=== PATIENT | female | born 1950 | race Caucasian/White ===

== ENCOUNTER → 2019-04-28 10:03 | Outpatient (CLI) | payer MEDICARE, OTHER, SELFPAY ==
[2019-04-28 10:59] LABS: Add Manual Diff / Slide Review NO; Basophils Absolute Auto 0 /uL (0-100); Basophils Percent Auto 0.5 % (0-2); Eosinophils Absolute Auto 300 /uL (0-450); Hematocrit 40.6 % (36-46); Hemoglobin 13.6 g/dL (12.0-16.0); Lymphocytes Absolute Auto 2300 /uL (1100-4500); Lymphocytes Percent Auto 35.1 % (25-40); Mean Corpuscular HGB Conc 33.5 % (30-36); Mean Corpuscular Hemoglobin 32.4 PG (26-34); Mean Corpuscular Volume 96.8 fL (80-100); Monocytes Absolute Auto 400 /uL (0-900); Monocytes Percent Auto 6.5 % (3-14); Neutrophils Absolute Auto 3600 /uL (1500-7000); Neutrophils Percent Auto 53.9 % (50-75); Platelet Count 236 X10^3/uL (150-400); Red Blood Cell Count 4.19 X10^6/uL (4.0-5.2); Red Cell Distribution Width 13.8 % (11.6-14.8); White Blood Cell Count 6.6 X10^3/uL (4.5-11.0)
[2019-04-28 11:07] LABS: Alanine Aminotransferase 24 IU/L (9-52); Albumin 4.5 g/dL (3.5-5.0); Albumin Globulin Ratio 1.7 (1.0-2.8); Alkaline Phosphatase 55 U/L (38-126); Aspartate Aminotransferase 31 IU/L (14-36); Bilirubin Total 0.8 mg/dL (0.2-1.3); Blood Urea Nitrogen 20 mg/dL (7-17); Calcium 9.3 mg/dL (8.4-10.2); Carbon Dioxide 28 mmol/L (22-32); Chloride 101 mmol/L (98-107); Cholesterol 186 mg/dL (140-199); Estimated Glomerular Filt Rate > 60.0 mL/min (>60); Globulin 2.6 g/dL (1.7-4.1); Glucose 96 mg/dL (80-110); HDL Cholesterol 65 mg/dL (40-60); HEMOLYSIS 28 (0-50); LDL Cholesterol Calculated 90 mg/dL (<100); Sodium 138 mmol/L (137-145); Total Protein 7.1 g/dL (6.3-8.2); Triglycerides 157 mg/dL (35-150)
[2019-04-28 11:14] LABS: Potassium 5.7 mmol/L (3.4-5.1)
== END ==
PROVIDERS: PCP Family Medicine; Visit Provider Family Medicine
DX: E78.5 Hyperlipidemia, unspecified (principal)
CPT/HCPCS: 36415; 80053; 80061; 85025

== ENCOUNTER → 2019-05-15 14:35 | Outpatient (CLI) | payer MEDICARE, OTHER, SELFPAY ==
--- NOTE | 2019-05-15 14:37 | DI.RAD.S_ITS ---
PROCEDURE: XR CHEST 2V INDICATIONS: Dyspnea TECHNIQUE: 2 views of the chest were acquired. COMPARISON: [facility], , CHEST 2 VIEW, 04/12/2014, 11:47. FINDINGS: Surgical changes and devices: None. Lungs and pleura: Lungs are clear. No pleural effusions or pneumothorax. Mediastinum: Mediastinal contours are normal. Heart size is normal. Bones and chest wall: No suspicious bony abnormalities. Soft tissues appear unremarkable. IMPRESSION: No acute disease Dictated by: Adams Jauregui M.D. on 05/15/2019 at 14:58 Approved by: Adams Jauregui M.D. on 05/15/2019 at 15:00
== END ==
PROVIDERS: PCP Family Medicine; Visit Provider Family Medicine
DX: R06.00 Dyspnea, unspecified (principal)
CPT/HCPCS: 71046

== ENCOUNTER → 2019-07-29 14:29 | Outpatient (CLI) | payer MEDICARE, OTHER, SELFPAY ==
--- NOTE | 2019-07-29 14:37 | DI.RAD.S_ITS ---
PROCEDURE: XR CHEST 2V INDICATIONS: cough, sob TECHNIQUE: 2 views of the chest were acquired. COMPARISON: [facility], CR, XR CHEST 2V, 05/15/2019, 14:37. FINDINGS: Surgical changes and devices: None. Lungs and pleura: Lungs are clear. No pleural effusions or pneumothorax. Mediastinum: Mediastinal contours are normal. Heart size is normal. Bones and chest wall: No suspicious bony abnormalities. Soft tissues appear unremarkable. IMPRESSION: No acute cardiopulmonary abnormality. Dictated by: Edy Mccray M.D. on 07/29/2019 at 15:18 Approved by: Edy Mccray M.D. on 07/29/2019 at 15:19
[2019-07-29 15:10] LABS: Add Manual Diff / Slide Review NO; Basophils Absolute Auto 0 /uL (0-100); Basophils Percent Auto 0.4 % (0-2); Eosinophils Absolute Auto 300 /uL (0-450); Eosinophils Percent Auto 2.6 % (2-4); Hematocrit 40.6 % (36-46); Hemoglobin 13.7 g/dL (12.0-16.0); Lymphocytes Absolute Auto 4300 /uL (1100-4500); Lymphocytes Percent Auto 42.7 % (25-40); Mean Corpuscular HGB Conc 33.7 % (30-36); Mean Corpuscular Hemoglobin 32.3 PG (26-34); Mean Corpuscular Volume 95.8 fL (80-100); Monocytes Absolute Auto 700 /uL (0-900); Monocytes Percent Auto 6.9 % (3-14); Neutrophils Absolute Auto 4800 /uL (1500-7000); Neutrophils Percent Auto 47.4 % (50-75); Platelet Count 239 X10^3/uL (150-400); Red Blood Cell Count 4.24 X10^6/uL (4.0-5.2); Red Cell Distribution Width 13.4 % (11.6-14.8); White Blood Cell Count 10.1 X10^3/uL (4.5-11.0)
== END ==
PROVIDERS: PCP Family Medicine; Visit Provider Nurse Practitioner Family
DX: R05 Cough (principal); R06.02 Shortness of breath
CPT/HCPCS: 36415; 71046; 85025

== ENCOUNTER → 2019-10-13 12:03 | Outpatient (CLI) | payer MEDICARE, OTHER, SELFPAY ==
--- NOTE | 2019-10-13 12:05 | DI.RAD.S_ITS ---
PROCEDURE: XR ANKLE RT MIN 3V INDICATIONS: Ankle pain TECHNIQUE: 3 views of the ankle were acquired. COMPARISON: [facility], CR, ANKLE MIN 3VW (RT), 01/25/2015, 16:02. FINDINGS: Bones: No acute fractures or dislocations. Old distal tibial diaphyseal fracture with deformity. Irregularity of the distal tibiofibular syndesmosis, likely sequelae of old injury. There is severe tibiotalar joint degeneration. Ankle mortise is normally aligned. No suspicious bony lesions. Calcaneal spurring. Soft tissues: No tibiotalar joint effusion. Achilles tendon appears normal. IMPRESSION: 1. No acute fractures. 2. Old distal tibial metaphyseal fracture with deformity. 3. Irregularity of the distal tibiofibular syndesmosis, likely sequelae of remote injury. 4. Severe tibiotalar joint degeneration. 5. Calcaneal spurring. Dictated by: Cyndi Person M.D. on 10/13/2019 at 13:29 Approved by: Cyndi Person M.D. on 10/13/2019 at 13:37
== END ==
PROVIDERS: PCP Family Medicine; Visit Provider Family Medicine
DX: M25.571 Pain in right ankle and joints of right foot (principal); M19.071 Primary osteoarthritis, right ankle and foot; M77.31 Calcaneal spur, right foot
CPT/HCPCS: 73610

== ENCOUNTER → 2019-10-20 15:36 | Outpatient (CLI) | payer MEDICARE, OTHER, SELFPAY ==
--- NOTE | 2019-10-20 15:38 | DI.MRI.S_ITS ---
PROCEDURE: MR ANKLE RT WO CON INDICATIONS: Right ankle pain TECHNIQUE: Noncontrast sagittal T1 spin echo and T2 fast spin echo with fat saturation, axial proton density fast spin echo and T2 fast spin echo with fat saturation, coronal T1 spin echo and T2 fast spin echo with fat saturation through the ankle/hindfoot. COMPARISON: None. FINDINGS: Image quality: Excellent. Bones and joints: No definite acute marrow contusion or fracture. No evidence of hindfoot coalition. No osteochondral injuries of the talar dome however there is no full-thickness tibiotalar cartilage loss with subchondral edema and cystic change. Subtalar joint injection also noted. Medial structures: The posterior tibialis, flexor digitorum longus, and flexor hallucis longus tendons are intact. The posterior tibial neurovascular bundle appears normal within the tarsal tunnel, without extrinsic mass effect. The deep layer (anterior and posterior tibiotalar ligaments) and superficial layer (tibionavicular, tibiospring, and tibiocalcaneal ligaments) of the deltoid ligament appear normal. The spring ligament components (superomedial calcaneonavicular, medioplantar oblique calcaneonavicular, and inferoplantar longitudinal ligaments) are intact. Lateral structures: The anterior talofibular demonstrates markedly thinned appearance although minimal intact fibers present. The calcaneofibular ligament is not well-visualized and probably ruptured although this could be chronic Posterior talofibular ligament appears intact. More superiorly, the anterior and posterior tibiofibular ligaments appear intact, however the Intermalleol ligament not well visualized and there is chronic appearing degenerative change, with sclerosis although some reactive marrow edema. The tibiofibular syndesmosis is normal in width at 2 mm or less. The peroneus longus and brevis tendons demonstrate normal location and morphology. Mild peroneus longus tenosynovitis Adjacent bony peroneal tubercle and retrotrochlear prominence are normal in size. The sinus tarsi demonstrates normal fatty signal, without edema, fibrosis, or cyst formation. Visualized sinus tarsi components (cervical ligament, interosseous talocalcaneal ligament, roots of the inferior extensor retinaculum) appear normal. The calcaneonavicular and calcaneocuboid components of the bifurcate ligament appear intact. The dorsal calcaneocuboid ligament appears intact. Anterior structures: The tibialis anterior, extensor hallucis longus, and extensor digitorum longus tendons appear intact. The dorsal talonavicular ligament appears intact. Posterior and plantar structures: Achilles tendon is intact. Medial band plantar fasciitis. No abductor digiti quinti muscle atrophy to suggest Hdez neuropathy. IMPRESSION: Severe tibiotalar and subtalar joint degeneration, with subchondral marrow edema and cystic changes. No definite osseous coalition seen, although differential does include nonosseous coalition (although statistically much less likely) Chronic appearing irregularity of the intermalleolar ligament, and adjacent sclerosis and mild marrow edema in keeping with ligamentous injury although appears chronic and no definite widening of the distal tibiofibular syndesmosis Chronic appearing sprain of the anterior talofibular ligament. The calcaneofibular ligament appears ruptured and not well-visualized Mild peroneus longus tenosynovitis Mild medial band plantar fasciitis. Dictated by: Adams Jauregui M.D. on 10/21/2019 at 9:14 Approved by: Adams Jauregui M.D. on 10/21/2019 at 9:29
== END ==
PROVIDERS: Family Provider Orthopaedic Surgery Foot and Ankle Surgery; PCP Family Medicine; Visit Provider Family Medicine
DX: M25.571 Pain in right ankle and joints of right foot (principal); M19.071 Primary osteoarthritis, right ankle and foot; M65.871 Other synovitis and tenosynovitis, right ankle and foot; M72.2 Plantar fascial fibromatosis
CPT/HCPCS: 73721

== ENCOUNTER → 2020-02-01 15:11 | Outpatient (CLI) | payer MEDICARE, OTHER, SELFPAY ==
--- NOTE | 2020-02-01 15:14 | DI.RAD.S_ITS ---
PROCEDURE: XR CHEST 2V INDICATIONS: Fatigue TECHNIQUE: 2 views of the chest were acquired. COMPARISON: [facility], CR, XR CHEST 2V, 07/29/2019, 14:41. FINDINGS: Surgical changes and devices: None. Lungs and pleura: Lungs are clear. No pleural effusions or pneumothorax. Mediastinum: Mediastinal contours are normal. Heart size is normal. Bones and chest wall: No suspicious bony abnormalities. Soft tissues appear unremarkable. IMPRESSION: No acute disease or interval change Dictated by: Adams Jauregui M.D. on 02/01/2020 at 16:31 Approved by: Adams Jauregui M.D. on 02/01/2020 at 16:33
[2020-02-01 17:09] LABS: Add Manual Diff / Slide Review NO; Basophils Absolute Auto 0 /uL (0-100); Basophils Percent Auto 0.3 % (0-2); Eosinophils Absolute Auto 200 /uL (0-450); Eosinophils Percent Auto 2.9 % (2-4); Hematocrit 40.1 % (36-46); Hemoglobin 13.8 g/dL (12.0-16.0); Lymphocytes Absolute Auto 2600 /uL (1100-4500); Lymphocytes Percent Auto 33.6 % (25-40); Mean Corpuscular HGB Conc 34.4 % (30-36); Monocytes Absolute Auto 600 /uL (0-900); Monocytes Percent Auto 7.3 % (3-14); Neutrophils Absolute Auto 4300 /uL (1500-7000); Neutrophils Percent Auto 55.9 % (50-75); Platelet Count 230 X10^3/uL (150-400); Red Blood Cell Count 4.18 X10^6/uL (4.0-5.2); Red Cell Distribution Width 13.2 % (11.6-14.8); White Blood Cell Count 7.7 X10^3/uL (4.5-11.0)
[2020-02-01 17:39] LABS: Alanine Aminotransferase 35 IU/L (<35); Albumin 4.6 g/dL (3.5-5.0); Albumin Globulin Ratio 1.6 (1.0-2.8); Alkaline Phosphatase 63 U/L (38-126); Aspartate Aminotransferase 34 IU/L (14-36); BUN Creatinine Ratio 23.1 (6-22); Bilirubin Total 0.5 mg/dL (0.2-1.3); Blood Urea Nitrogen 21 mg/dL (7-17); Calcium 10.6 mg/dL (8.4-10.2); Carbon Dioxide 25 mmol/L (22-32); Chloride 103 mmol/L (98-107); Estimated Glomerular Filt Rate > 60.0 mL/min (>60); Globulin 2.9 g/dL (1.7-4.1); Glucose 93 mg/dL (80-110); HEMOLYSIS < 15 (0-50); Potassium 4.4 mmol/L (3.4-5.1); Sodium 138 mmol/L (137-145); Total Protein 7.5 g/dL (6.3-8.2)
[2020-02-01 18:09] LABS: Thyroid Stimulating Hormone 2.36 uIU/mL (0.47-4.68)
[2020-02-03 06:51] LABS: COVID19 Sendout Not Detected (Not Detected)
== END ==
PROVIDERS: Physician Assistant; Family Provider Orthopaedic Surgery Foot and Ankle Surgery; PCP Family Medicine; Referring Provider Family Medicine; Visit Provider Family Medicine
DX: R53.83 Other fatigue (principal); R06.02 Shortness of breath
CPT/HCPCS: 36415; 71046; 80053; 84443; 85025; 87635

== ENCOUNTER 2020-08-27 08:22 | Emergency (ER) | payer MEDICARE, OTHER, SELFPAY ==
[2020-08-27 08:29] VITALS: BP 169/88; PULSE 71; RESP 18; TEMP 36.9; O2SAT 97; BMI 33.5
[2020-08-27] MEDS: PROPARACAINE 0.5% OPHTH SOL 1 DROPS EYE-BOTH (08:40)
[2020-08-27] MEDS: FLUORESCEIN 1 MG STRIP EYE-BOTH (08:40)
--- NOTE | 2020-08-27 08:44 | ED.EYEPROB ---
HPI - Eye Problem General Chief complaint: Eye Problems Stated complaint: LT EYE SWOLLEN/ RED DRAINING Time Seen by Provider: 08/27/20 08:29 Source: patient Mode of arrival: Ambulatory Limitations: no limitations History of Present Illness HPI Narrative: The patient is a 70-year-old female with history of cataract presenting with right eye irritation and drainage. She said it started yesterday it felt like septic was in her eye. This morning she woke up and was all crusted over. She thought it might be allergies could she was sneezing some yesterday. She denies any fever chills no blurry or double vision. chief complaint: eye redness Onset (ago): day(s) Onset description: unknown Duration: constant Location: right eye Eye Symptoms: burning, redness, pain, foreign body sensation, discharge and photophobia Mechanism: none Related Data Home Medications Medication Instructions Recorded Confirmed CALCIUM/VITAMIN D (CALCIUM + D 1 tab PO #0 07/25/11 07/29/19 500MG/125UNITS) MULTIVITAMIN (#MULTIPLE VITAMINS) 1 cap PO Q DAY #0 07/25/11 07/29/19 Previous Rx's Medication Instructions Recorded albuterol sulfate 90 mcg/actuation 2 puff INHALATION Q4-6H PRN #6.7 05/15/19 aerosol inhaler gram tiotropium bromide 1.25 2 puff INHALATION DAILY #4 gram 07/29/19 mcg/actuation mist for inhalation atorvastatin 10 mg tablet See Rx Instructions .ROUTE 07/04/20 .COMPLEX #90 tab citalopram 20 mg tablet 20 mg PO DAILY #90 tab 08/16/20 polymyxin B sulf-trimethoprim 2 drop EYE-RIGHT Q4HRWA 7 Days #10 08/27/20 [Polytrim] ml Allergies Allergy/AdvReac Type Severity Reaction Status Date / Time codeine [CODEINE] AdvReac Mild UPSET Verified 08/27/20 08:40 STOMACH,DIZZY Review of Systems Review of Systems Narrative: GENERAL: Denies chills,fever HEENT: See HPI RESPIRATORY: Denies dyspnea, cough, wheezing CARDIOVASCULAR: Denies chest pain, palpitations GASTROINTESTINAL: Denies nausea, vomiting MUSCULOSKELETAL: Denies extremity pain, injury SKIN: No rash, no laceration, no pruritus NEUROLOGIC: Denies weakness, dizziness, headache, numbness 8 point review of systems is negative except for those stated above and HPI Patient History Surgical History History of carpal tunnel repair (05/30/16) Social History Smoking Status: Never smoker Smoking Status: Never smoker alcohol intake frequency: 3 or more drinks per day Substance Use Type: does not use Exam Initial Vital Signs Initial Vital Signs: Vital Signs Temperature 98.5 F 08/27/20 08:29 Pulse Rate 71 08/27/20 08:29 Respiratory Rate 18 08/27/20 08:29 Blood Pressure 169/88 H 08/27/20 08:29 Pulse Oximetry 97 08/27/20 08:29 GENERAL: Well-appearing, well-nourished and in no acute distress. Right eye was treated with proparacaine, stained with fluorescein. No dye uptake. No foreign body. Pressure in right eye 23 mg mercury, pressure in left eye 15 mg every CARDIOVASCULAR: peripheral pulses in tact, cap refill <2 sec RESPIRATORY: No respiratory distress, speaks in full sentences without difficulty EXTREMITIES: Normal range of motion, no clubbing or edema. Neurovascularly intact NEUROLOGICAL: Cranial nerves II through XII grossly intact. Normal gait and speech. SKIN: Warm, dry, no petechiae, no rashes or lesions. Course Orders Ordered: Discontinued Medications Fluorescein Sodium (Ful-Priyanka) 1 mg EYE-BOTH NOW ONE Stop: 08/27/20 08:33 Proparacaine HCl (Parcaine 0.5% Ophth Melony) 1 drops EYE-BOTH NOW ONE Stop: 08/27/20 08:33 Vital Signs Vital signs: Vital Signs - 8 hr 08/27/20 08:29 Temperature 98.5 F Pulse Rate 71 Respiratory Rate 18 Blood Pressure 169/88 H Pulse Oximetry 97 Discharge Plan Departure Patient Disposition: Home Clinical Impression: Conjunctivitis Qualifiers: Conjunctivitis type: acute Acute conjunctivitis type: bacterial Laterality: right Qualified Code(s): H10.31 - Unspecified acute conjunctivitis, right eye Discharge Date/Time: 08/27/20 09:02 Instructions: Conjunctivitis Activity Restrictions/Additional Instructions: *You have been diagnosed with right eye conjunctivitis *What to do: With is otherwise known as pinkeye. Please wash hands and try not to touch eye. *Continue to take medications as directed Polytrim eyedrops 1-2 drops every 4 hours in right eye while awake for 1 week *Follow up with your primary care provider in 2-3 days *Return to ER if you should have decreasing vision, fever, pain, redness around the eye or any new, worsening or concerning symptoms Prescriptions: New polymyxin B sulf-trimethoprim [Polytrim] 10,000 unit- 1 mg/mL drops 2 drop EYE-RIGHT Q4HRWA 7 Days Qty: 10 RF: 0 No Action MULTIVITAMIN (#MULTIPLE VITAMINS) 1 cap PO Q DAY Qty: 0 RF: 0 CALCIUM/VITAMIN D (CALCIUM + D 500MG/125UNITS) 1 tab PO Qty: 0 RF: 0 atorvastatin 10 mg tablet See Rx Instructions .ROUTE .COMPLEX Qty: 90 RF: 3 citalopram 20 mg tablet 20 mg PO DAILY Qty: 90 RF: 0 albuterol sulfate 90 mcg/actuation HFA aerosol inhaler 2 puff INHALATION Q4-6H PRN (Reason: shortness of breath) Qty: 6.7 RF: 5 Spiriva Respimat 1.25 mcg/actuation mist 2 puff INHALATION DAILY Qty: 4 RF: 0 Referrals: George Ray MD [Primary Care Provider] -
== END 2020-08-27 09:02 | disposition home or self-care (01) ==
LOC: ED 08:56
PROVIDERS: Emergency Provider Emergency Medicine; Family Provider Orthopaedic Surgery Foot and Ankle Surgery; PCP Family Medicine
DX: H10.31 Unspecified acute conjunctivitis, right eye (principal)
CPT/HCPCS: 99282

== ENCOUNTER → 2020-10-10 10:15 | Outpatient (CLI) | payer MEDICARE, OTHER, SELFPAY ==
[2020-10-10 12:04] LABS: Cholesterol 198 mg/dL (140-199); HDL Cholesterol 65 mg/dL (40-60); LDL Cholesterol Calculated 93 mg/dL (<100); Triglycerides 202 mg/dL (35-150)
== END ==
PROVIDERS: Family Provider Orthopaedic Surgery Foot and Ankle Surgery; PCP Family Medicine; Referring Provider Family Medicine; Visit Provider Family Medicine
DX: E78.5 Hyperlipidemia, unspecified (principal)
CPT/HCPCS: 36415; 80061

== ENCOUNTER → 2021-12-12 10:45 | Outpatient (CLI) | payer MEDICARE, OTHER, SELFPAY ==
[2021-12-12 13:02] LABS: Add Manual Diff / Slide Review NO; Basophils Absolute Auto 0 /uL (0-100); Basophils Percent Auto 0.5 % (0-2); Eosinophils Absolute Auto 300 /uL (0-450); Eosinophils Percent Auto 3.9 % (2-4); Hematocrit 39.9 % (36-46); Hemoglobin 13.5 g/dL (12.0-16.0); Lymphocytes Absolute Auto 2400 /uL (1100-4500); Mean Corpuscular HGB Conc 33.9 % (30-36); Mean Corpuscular Hemoglobin 32.1 PG (26-34); Mean Corpuscular Volume 94.7 fL (80-100); Monocytes Absolute Auto 500 /uL (0-900); Monocytes Percent Auto 6.7 % (3-14); Neutrophils Absolute Auto 3700 /uL (1500-7000); Neutrophils Percent Auto 53.9 % (50-75); Platelet Count 205 X10^3/uL (150-400); Red Blood Cell Count 4.21 X10^6/uL (4.0-5.2); Red Cell Distribution Width 13.5 % (11.6-14.8); White Blood Cell Count 6.8 X10^3/uL (4.5-11.0)
[2021-12-12 14:05] LABS: Alanine Aminotransferase 25 IU/L (<35); Albumin 4.5 g/dL (3.5-5.0); Albumin Globulin Ratio 1.7 (1.0-2.8); Alkaline Phosphatase 60 U/L (38-126); Aspartate Aminotransferase 31 IU/L (14-36); BUN Creatinine Ratio 26.8 (6-22); Bilirubin Total 0.7 mg/dL (0.2-1.3); Blood Urea Nitrogen 22 mg/dL (7-17); Calcium 9.4 mg/dL (8.4-10.2); Carbon Dioxide 22 mmol/L (22-32); Chloride 105 mmol/L (98-107); Cholesterol 177 mg/dL (140-199); Estimated Glomerular Filt Rate > 60.0 mL/min (>60); Globulin 2.6 g/dL (1.7-4.1); Glucose 95 mg/dL (80-110); HDL Cholesterol 64 mg/dL (40-60); HEMOLYSIS 23 (0-50); LDL Cholesterol Calculated 81 mg/dL (<100); Potassium 4.8 mmol/L (3.4-5.1); Sodium 137 mmol/L (137-145); Total Protein 7.1 g/dL (6.3-8.2); Triglycerides 158 mg/dL (35-150)
[2021-12-12 14:35] LABS: TSH w/ Reflex to FT4 2.32 uIU/mL (0.47-4.68)
== END ==
PROVIDERS: Family Provider Orthopaedic Surgery Foot and Ankle Surgery; PCP Family Medicine; Referring Provider Family Medicine; Visit Provider Family Medicine
DX: E78.2 Mixed hyperlipidemia (principal); E83.52 Hypercalcemia; F32.9 Major depressive disorder, single episode, unspecified; R53.83 Other fatigue
CPT/HCPCS: 36415; 80053; 80061; 84443; 85025

== ENCOUNTER 2023-01-24 14:35 | Emergency (ER) | payer MEDICARE, OTHER, SELFPAY ==
[2023-01-24 14:41] VITALS: BP 175/75; PULSE 85; RESP 15; TEMP 36.2; O2SAT 96; BMI 35.8
--- NOTE | 2023-01-24 15:20 | DI.US.S_ITS ---
PROCEDURE: US PERIPH VENOUS LOW EXTREM LT INDICATIONS: POSTERIOR KNEE PAIN TECHNIQUE: Real-time imaging, as well as color and pulse Doppler interrogation, were performed of the lower extremity deep veins from the inguinal ligament to the popliteal fossa. COMPARISON: None. FINDINGS: The common femoral, femoral and popliteal veins are normally compressible, and free of intraluminal thrombus. Color and pulse Doppler demonstrate normal phasic intraluminal flow. There is normal augmentation response to distal compression maneuver. IMPRESSION: No deep venous thrombosis in the visualized lower extremity. Dictated by: Salty Torre M.D. on 01/24/2023 at 15:56 Approved by: Salty Torre M.D. on 01/24/2023 at 15:56
--- NOTE | 2023-01-24 15:31 | DI.RAD.S_ITS ---
PROCEDURE: XR KNEE LT 3V INDICATIONS: knee pain TECHNIQUE: 3 views of the knee were acquired. COMPARISON: None. FINDINGS: Bones: No fractures or dislocations. No suspicious bony lesions. Soft tissues: No joint effusion. No suspicious soft tissue calcifications. IMPRESSION: Intact left knee Dictated by: Arabella Davenport M.D. on 01/24/2023 at 16:50 Approved by: Arabella Davenport M.D. on 01/24/2023 at 16:51
--- NOTE | 2023-01-24 15:33 | ED_ITS ---
HPI - Extremity Problem General Chief complaint: Extremity Problem,Nontraumatic Stated complaint: Thinks blood clot Time Seen by Provider: 01/24/23 14:58 Source: patient Mode of arrival: Ambulatory History of Present Illness HPI Narrative: 72F nonsmoker with hyperlipidemia presents with a chief complaint of pain in her left posterior knee after an injury on Saturday. She states she was in her normal state of health when she was standing up from a seated position and felt a pop behind her left knee and some pain with minimal swelling. She denies any traumatic injury. She denies any redness or warmth. She is had no recent trauma, travel or history of clot. She states that she was talking to a friend of hers who gets frequent blood clots who scared her about the potential of having a clot and she is here for evaluation. She denies any chest pain or shortness of breath. She has no fever or chills. The pain behind her knee seems to be worse when she walks and improves with rest Related Data Home Medications Medication Instructions Recorded Confirmed CALCIUM/VITAMIN D (CALCIUM + D 1 tab PO ##0 07/25/11 03/20/22 500MG/125UNITS) MULTIVITAMIN (#MULTIPLE VITAMINS) 1 cap PO Q DAY ##0 07/25/11 03/20/22 Previous Rx's Medication Instructions Recorded tiotropium bromide 1.25 2 puff inhalation DAILY #4 grams 07/29/19 mcg/actuation mist for inhalation (Spiriva Respimat) albuterol sulfate 90 mcg/actuation 2 puff inhalation Q4-6H PRN 12/05/21 aerosol inhaler shortness of breath #6.7 grams diclofenac sodium 3 % topical gel 1 applic topical BID #100 grams 03/20/22 atorvastatin 10 mg tablet 10 mg PO DAILY #90 tabs 07/27/22 citalopram 20 mg tablet 20 mg PO DAILY #90 tabs 09/17/22 Allergies Allergy/AdvReac Type Severity Reaction Status Date / Time codeine [CODEINE] AdvReac Mild UPSET Verified 01/24/23 14:43 STOMACH,DIZZY Review of Systems Review of Systems Narrative: GENERAL: Denies chills, fatigue, malaise, fever, sweats. HEENT: Denies sinus pain, ear pain, sore throat, difficulty swallowing, dizziness. RESPIRATORY: Denies dyspnea, cough, wheezing, hemoptysis, sputum. CARDIOVASCULAR: Denies chest pain, palpitations, orthopnea, edema, GASTROINTESTINAL: Denies nausea, vomiting, abdominal pain, diarrhea, constipation, melena. : Denies dysuria, frequency, incontinence, hematuria, urinary retention. MUSCULOSKELETAL: See HPI SKIN: Denies rash, skin lesions, or other NEUROLOGIC: Denies weakness, headache, numbness, change in speech, confusion, seizures, incoordination. PSYCHIATRIC: No concerning psychosocial issues. 12 point review of systems is negative except for those stated above Patient History Medical History Hypercalcemia TMJ (temporomandibular joint disorder) Surgical History History of carpal tunnel repair (05/30/16) Social History Smoking Status: Never smoker Smoking Status: Never smoker alcohol intake frequency: 3 or more drinks per day Substance Use Type: does not use Exam Narrative Exam Narrative: GEN: AOx3 and in mild distress EYES: Pupils are equal, round, and reactive to light and accommodation. Extraoccular muscles are intact bilaterally. There is no subconjunctival hemorrhage or exudate. CHEST: Lungs are clear to auscultation bilaterally and free of wheezes, rales, or rhonchi. Heart rate is regular rhythm, there are no murmurs, clicks, rubs, or gallops. There is no chest wall tenderness. ABD: Abdomen is soft and nontender. There is no guarding or rebound. Bowel sounds are normal in all 4 quadrants. There is no mass or organomegaly. EXT: Left knee with minimal pain in the popliteal fossa, no obvious deformity, no effusion or ligamentous laxity, no warmth or erythema. SKIN: Warm, pink, and dry. No erythema or rash Initial Vital Signs Initial Vital Signs: Vital Signs Temperature 97.2 F L 01/24/23 14:41 Pulse Rate 85 01/24/23 14:41 Respiratory Rate 15 01/24/23 14:41 Blood Pressure 175/75 H 01/24/23 14:41 Pulse Oximetry 96 01/24/23 14:41 Oxygen Delivery Method Room Air 01/24/23 14:41 Course Orders Ordered: ED Orders 01/24/23 15:20 US periph venous low extrem lt Stat 01/24/23 15:31 XR knee LT 3V Stat Vital Signs Vital signs: Vital Signs - 8 hr 01/24/23 14:41 01/24/23 15:57 Temperature 97.2 F L Pulse Rate 85 Respiratory Rate 15 Blood Pressure 175/75 H 181/81 H Pulse Oximetry 96 Oxygen Delivery Method Room Air MDM - Extremity (Nontraumatic) MDM Narrative Medical decision making narrative: [72] year old patient presents with left knee pain and minimal risk/ Multiple etiologies for patient's symptoms considered including, but not limited to: [DVT, sprain or strain, fracture, dislocation versus other] Prior Charts reviewed in our EMR Primary Historian: patient Imaging reviewed: Ultrasound demonstrates no DVT, x-ray shows no fracture or dislocation Patient's symptoms improved over duration of stay with above-stated therapies. Findings and discharge diagnosis discussed with patient/family followed by verbalization of understanding Return precautions discussed with patient/family whom verbalize understanding of diagnosis and plan Discharge Plan Departure Patient Disposition: Home Clinical Impression: Left knee sprain Instructions: DI for Knee Sprain Activity Restrictions/Additional Instructions: *You have been diagnosed with [left knee sprain, as we discussed your history and physical exam are reassuring. X-ray shows no obvious fracture or dislocation and ultrasound demonstrates no clot] *What to do: *Please continue to take your regular medications as directed. [ *Please follow up with your primary care provider in 2-3 days, call for an appointment. Let them know you were seen in the Emergency Department and that we ask that you be seen in follow up. We will electronically transmit a record of today's note if your PCP is in our system *If you do not have a primary care provider please contact the [facility] Resource line at [phone]. They will ask some questions about your medical history and help get you set up with a doctor in the community. *Return to Emergency Department if you should have any new, worsening or concerning symptoms, such as [fever greater than 101 F, shaking chills, worsening pain, persistent vomiting or other bothersome symptoms] Radiographic study has been interpreted by an emergency physician. The official diagnosis by radiology will be performed within the next 24 hours and should there be any change in outcome we will notify you of how to proceed. Prescriptions: No Action diclofenac sodium 3 % gel 1 applic topical BID Qty: 100 0RF MULTIVITAMIN (#MULTIPLE VITAMINS) 1 cap PO Q DAY Qty: 0 CALCIUM/VITAMIN D (CALCIUM + D 500MG/125UNITS) 1 tab PO Qty: 0 atorvastatin 10 mg tablet 10 mg PO DAILY Qty: 90 3RF citalopram 20 mg tablet 20 mg PO DAILY Qty: 90 3RF Spiriva Respimat 1.25 mcg/actuation mist 2 puff INHALATION DAILY Qty: 4 0RF albuterol sulfate 90 mcg/actuation HFA aerosol inhaler 2 puff INHALATION Q4-6H PRN (Reason: shortness of breath) Qty: 6.7 5RF Referrals: Rm Rivera MD [Primary Care Provider] - Stand Alone Forms: Patient Portal/API
[2023-01-24 15:57] VITALS: BP 181/81
== END 2023-01-24 15:57 | disposition home or self-care (01) ==
PROVIDERS: Emergency Provider Emergency Medicine; Family Provider Orthopaedic Surgery Foot and Ankle Surgery; PCP Family Medicine
DX: S83.92XA Sprain of unspecified site of left knee, initial encounter (principal); X58.XXXA Exposure to other specified factors, initial encounter
CPT/HCPCS: 73562; 93971; 99283

== ENCOUNTER → 2023-04-09 08:41 | Outpatient (CLI) | payer MEDICARE, OTHER, SELFPAY ==
--- NOTE | 2023-04-09 08:42 | DI.RAD.S_ITS ---
PROCEDURE: XR CERVICAL SPINE 4V INDICATIONS: right hand and arm numbness TECHNIQUE: 4 view(s) of the cervical spine were acquired. COMPARISON: None. FINDINGS: Bones: No fractures or dislocations to the T1 level. The lateral masses of C1 appear intact on the odontoid view. No suspicious bony lesions. Moderate to severe C4-C5 and C5-C6 degenerative disc disease. Mild facet hypertrophy throughout the cervical spine. Soft tissues: No prevertebral soft tissue swelling. IMPRESSION: 1. Multilevel degenerative disc disease. 2. Multilevel facet arthropathy. 3. No fracture. No acute osseous lesion. If symptoms and/or clinical suspicion for pathology persists, evaluation with MRI should be considered for further assessment. Dictated by: Patricia Welsh MD, PhD on 04/09/2023 at 13:33 Approved by: Patricia Welsh MD, PhD on 04/09/2023 at 13:33
== END ==
PROVIDERS: Family Provider Orthopaedic Surgery Foot and Ankle Surgery; PCP Family Medicine; Referring Provider Family Medicine; Visit Provider Family Medicine
DX: M47.812 Spondylosis without myelopathy or radiculopathy, cervical region (principal); M50.321 Other cervical disc degeneration at C4-C5 level; R20.0 Anesthesia of skin; E83.52 Hypercalcemia
CPT/HCPCS: 72040

== ENCOUNTER → 2023-04-23 09:04 | Outpatient (CLI) | payer MEDICARE, OTHER, SELFPAY ==
[2023-04-23 10:00] LABS: Add Manual Diff / Slide Review NO; Basophils Absolute Auto 0 /uL (0-100); Basophils Percent Auto 0.5 % (0-2); Eosinophils Absolute Auto 300 /uL (0-450); Eosinophils Percent Auto 4.8 % (2-4); Hematocrit 36.5 % (36-46); Hemoglobin 12.6 g/dL (12.0-16.0); Lymphocytes Absolute Auto 2200 /uL (1100-4500); Lymphocytes Percent Auto 32.6 % (25-40); Mean Corpuscular HGB Conc 34.6 % (30-36); Mean Corpuscular Hemoglobin 32.9 PG (26-34); Mean Corpuscular Volume 95.1 fL (80-100); Monocytes Absolute Auto 500 /uL (0-900); Monocytes Percent Auto 7.9 % (3-14); Neutrophils Absolute Auto 3600 /uL (1500-7000); Neutrophils Percent Auto 54.2 % (50-75); Platelet Count 195 X10^3/uL (150-400); Red Blood Cell Count 3.84 X10^6/uL (4.0-5.2); Red Cell Distribution Width 13.4 % (11.6-14.8); White Blood Cell Count 6.7 X10^3/uL (4.5-11.0)
[2023-04-23 11:06] LABS: Alanine Aminotransferase 27 IU/L (<35); Albumin 4.1 g/dL (3.5-5.0); Albumin Globulin Ratio 1.6 (1.0-2.8); Alkaline Phosphatase 64 U/L (38-126); Aspartate Aminotransferase 24 IU/L (14-36); BUN Creatinine Ratio 30.4 (6-22); Bilirubin Total 0.7 mg/dL (0.2-1.3); Blood Urea Nitrogen 28 mg/dL (7-17); Calcium 8.9 mg/dL (8.4-10.2); Carbon Dioxide 25 mmol/L (22-32); Chloride 104 mmol/L (98-107); Cholesterol 177 mg/dL (140-199); Estimated Glomerular Filt Rate > 60 mL/min (>60); Globulin 2.6 g/dL (1.7-4.1); Glucose 101 mg/dL (80-110); HDL Cholesterol 58 mg/dL (40-60); HEMOLYSIS < 15 (0-50); LDL Cholesterol Calculated 80 mg/dL (<100); Potassium 5.1 mmol/L (3.4-5.1); Sodium 135 mmol/L (137-145); Total Protein 6.7 g/dL (6.3-8.2); Triglycerides 196 mg/dL (35-150)
[2023-04-23 11:11] LABS: Creatinine Urine Random 94.3 mg/dL
[2023-04-23 11:12] LABS: Microalbumi Creatinin Ratio Ur 12.7 ug/mg CR (<30); Microalbumin Urine Random 1.2 mg/dL (0-1.6)
[2023-04-23 11:36] LABS: TSH w/ Reflex to FT4 3.49 uIU/mL (0.47-4.68)
== END ==
PROVIDERS: Family Provider Orthopaedic Surgery Foot and Ankle Surgery; PCP Family Medicine; Referring Provider Family Medicine; Visit Provider Family Medicine
DX: E78.5 Hyperlipidemia, unspecified (principal); E83.52 Hypercalcemia; R53.83 Other fatigue; Z87.39 Personal history of other diseases of the musculoskeletal system and connective tissue; Z68.33 Body mass index [BMI] 33.0-33.9, adult
CPT/HCPCS: 36415; 80053; 80061; 82043; 82570; 84443; 85025

== ENCOUNTER → 2023-04-24 15:05 | Outpatient (CLI) | payer MEDICARE, OTHER, SELFPAY ==
--- NOTE | 2023-04-24 15:35 | DI.RAD.S_ITS ---
PROCEDURE: XR DEXA AXIAL SKELETON INDICATIONS: osteopenia COMPARISON: [facility], CR, XR DEXA AXIAL SKELETON, 02/19/2018, 14:52. FINDINGS: This blank DEXA report has been sent in error by the PACS system. The correct and complete report will be forthcoming in 1-2 days. Thank you for your patience and understanding. Dictated by: Migule Maddox M.D. on 04/26/2023 at 9:11 Approved by: Miguel Maddox M.D. on 04/26/2023 at 9:12
--- NOTE | 2023-04-24 15:47 | DI.DEXA.S_ITS ---
Bone Density Report Name: SD KIDD Age: 72 Sex: Female Ethnicity: White Date of : 1950 Indication: osteopenia; Referring Provider: GENIE MONTES Study: Bone densitometry was performed. Exam Date: April 24, 2023 Accession number: [id number] Bone Density: Region BMD T-score Z-score Classification AP Spine(L1-L4) 0.889 -1.4 0.9 Osteopenia Femoral Neck (Left) 0.726 -1.1 1.0 Osteopenia Total Hip (Left) 0.893 -0.4 1.4 Normal Femoral Neck (Right) 0.712 -1.2 0.8 Osteopenia Total Hip (Right) 0.842 -0.8 0.9 Normal Total Hip Mean 0.868 -0.6 1.2 Normal World Health Organization criteria for BMD impression classify patients as: Normal (T-score at or above -1.0), Osteopenia (T-score between -1.0 and -2.5), or Osteoporosis (T-score at or below -2.5). 10-year Fracture Risk(1): Major Osteoporotic Fracture 11% Hip Fracture 2.3% Reported Risk Factors: [place] (), Neck BMD=0.712, BMI=36.0, alcohol use (1) FRAX(R) Version 3.08. Fracture probability calculated for an untreated patient. Fracture probability may be lower if the patient has received treatment. Previous Exams: -- Region Exam Age BMD T-score BMD Change BMD Change Date g/cm2 vs Baseline vs Previous -- AP Spine (L1-L4) 04/24/2023 72 0.889 -1.4 0.006 (0.7%)# 0.006 (0.7%)# 02/19/2018 67 0.883 -1.5 Total Hip(Left) 04/24/2023 72 0.893 -0.4 0.051 (6.1%)# 0.051 (6.1%)# 02/19/2018 67 0.842 -0.8 Total Hip(Right) 04/24/2023 72 0.842 -0.8 0.032 (4.0%)# 0.032 (4.0%)# 02/19/2018 67 0.810 -1.1 -- *Denotes significance at 95% confidence level, LSC for AP Spine = 0.022 g/cm2, LSC for Total Hip = 0.027 g/cm2 # Denotes dissimilar scan types or analysis methods Impression: The patient has low bone mass, based on the Total Spine T-score. The patient has an estimated ten-year risk of hip fracture of 2.3% and an estimated ten-year risk of major fracture of 11%, based on the WHO FRAX algorithm. The patient has risk factors, including: excessive alcohol use. No significant bone loss was observed. Discussion: BONE DENSITY IS LOW AT ONE OR MORE SKELETAL SITES. This patient's lowest T-score is low at one or more skeletal sites. It meets the World Health Organization's (WHO) criteria for ?low bone mass? (T-score between -1.0 and -2.5). The patient's 10-year risk of fracture as calculated by FRAX is less than the threshold where pharmacological therapy is recommended by the National Osteoporosis Foundation (NOF). However, all treatment decisions require clinical judgment and consideration of individual patient factors, including patient preferences, comorbidities, previous drug use, risk factors not captured in the FRAX model (e.g., frailty, falls, vitamin D deficiency, increased bone turnover, interval significant decline in bone density) and possible under or overestimation of fracture risk by FRAX. The patient should follow a healthful lifestyle (good nutrition with adequate calcium and vitamin D, and appropriate weight-bearing exercise). Follow-Up: Consider repeating this study in 2 to 3 years to reassess this patient's status, or sooner if there is some new clinical indication. Reported by: RACQUEL DIAS M.D. on 04/24/2023 3:54:00 PM.
== END ==
PROVIDERS: Family Provider Family Medicine; PCP Family Medicine; Referring Provider Family Medicine; Visit Provider Family Medicine
DX: M85.89 Other specified disorders of bone density and structure, multiple sites (principal); Z87.39 Personal history of other diseases of the musculoskeletal system and connective tissue; Z78.0 Asymptomatic menopausal state
CPT/HCPCS: 77080

== ENCOUNTER → 2023-04-25 10:59 | Outpatient (CLI) | payer MEDICARE, OTHER, SELFPAY | PROVIDERS: Family Provider Family Medicine; PCP Family Medicine; Referring Provider Family Medicine; Visit Provider Family Medicine | DX: R20.0 Anesthesia of skin (principal) | CPT/HCPCS: 95886; 95911 ==

== ENCOUNTER → 2023-07-15 16:17 | Outpatient (CLI) | payer MEDICARE, OTHER, SELFPAY ==
[2023-07-15 17:01] LABS: Influenza A - CEPHEID Flu A NEGATIVE (NEGATIVE); Influenza B - CEPHEID Flu B NEGATIVE (NEGATIVE); Respiratory Syncytial Virus Negative (Negative)
[2023-07-15 17:04] LABS: COVID-19 CEPHEID 4-PLEX PCR Negative (Negative)
== END ==
PROVIDERS: Family Provider Family Medicine; PCP Family Medicine; Visit Provider Physician Assistant
DX: R05.1 Acute cough (principal)
CPT/HCPCS: 0241U

== ENCOUNTER → 2023-07-15 16:21 | Outpatient (CLI) | payer MEDICARE, OTHER, SELFPAY ==
--- NOTE | 2023-07-15 16:23 | DI.RAD.S_ITS ---
PROCEDURE: XR CHEST 2V INDICATIONS: Shortness of breath TECHNIQUE: 2 views of the chest were acquired. COMPARISON: [facility], , XR CHEST 2V, 07/29/2019, 14:41. [facility], CR, XR CHEST 2V, 02/01/2020, 15:35. FINDINGS: Surgical changes and devices: None. Lungs and pleura: Lungs are clear. No pleural effusions or pneumothorax. Mediastinum: Mediastinal contours are normal. Heart size is normal. Bones and chest wall: No suspicious bony abnormalities. Soft tissues appear unremarkable. IMPRESSION: No acute cardiopulmonary abnormality is seen. Dictated by: Cyndi Person M.D. on 07/15/2023 at 17:07 Approved by: Cyndi Person M.D. on 07/15/2023 at 17:08
== END ==
PROVIDERS: Family Provider Family Medicine; PCP Family Medicine; Referring Provider Physician Assistant; Visit Provider Physician Assistant
DX: R05.1 Acute cough (principal)
CPT/HCPCS: 0241U; 71046; C9803

== ENCOUNTER → 2023-08-01 14:59 | Outpatient (CLI) | payer MEDICARE, OTHER, SELFPAY | PROVIDERS: Family Provider Family Medicine; PCP Family Medicine; Referring Provider Family Medicine; Visit Provider Family Medicine | DX: R06.02 Shortness of breath (principal); R05.9 Cough, unspecified; J45.998 Other asthma; J98.8 Other specified respiratory disorders | CPT/HCPCS: 94060; 94726; 94729 ==

== ENCOUNTER → 2023-09-26 14:31 | Outpatient (CLI) | payer MEDICARE, OTHER, SELFPAY | PROVIDERS: Family Provider Family Medicine; PCP Family Medicine; Referring Provider Family Medicine; Visit Provider Family Medicine | DX: R00.2 Palpitations (principal) | CPT/HCPCS: 93246 ==

== ENCOUNTER → 2023-10-25 13:24 | Outpatient (CLI) | payer MEDICARE, OTHER, SELFPAY ==
--- NOTE | 2023-10-25 13:25 | DI.NM.S_ITS ---
PROCEDURE: NM MARINO PERF SPECT REST & STR Rest and exercise myocardial perfusion SPECT with gated imaging and ejection fraction RADIOPHARMACEUTICAL: 26.8 mCi Tc-99m sestamibi IV at rest and 2.5 mCi Tc-99m sestamibi IV at peak exercise. A [id number] was performed. INDICATIONS: Exertional dyspnea, fairly unremarkable PFT TECHNIQUE: Radiopharmaceutical was injected at peak stress test, and also at rest. SPECT images were obtained. SPECT myocardial perfusion images were displayed in short axis, horizontal long axis, and vertical long axis views. Gated images were reviewed using RoboCent software. COMPARISON: None. CARDIAC STRESS: A standard Bernardo treadmill exercise tolerance test was performed by the patient under the supervision of an attending staff. The patient exercised for 6 minutes and 10 seconds; 7.0 METS; functional aerobic impairment (CELINA) is -16%. Hemodynamic data: There is normal blood pressure and heart rate response to exercise stress. Patient achieved 87% of maximum predicted heart rate at peak exercise. Maximum blood pressure 195/78. Symptoms: Patient denied chest pain during exercise. EKG: No diagnostic EKG changes of ischemia; no ectopy. FINDINGS: Raw data: There is good myocardial labeling by radiotracer. No significant motion artifacts. Fqny-wr-cqpks ratio is 0.44 (normal is less than 0.38 for sestamibi tracer, and less than 0.50 for thallium tracer). Left ventricle function: Gated images demonstrate normal left ventricle wall thickening. No segmental wall motion abnormality. No transient ischemic dilation; TID is 1.0 (normal less than 1.3). The left ventricle resting end-diastolic volume is 66 mL. Left ventricle stress ejection fraction is >75%; normal values are above 45%. Myocardial perfusion: There is normal distribution of activity in the left and right ventricular myocardium. No fixed or reversible perfusion defects. IMPRESSION: Low risk study. No evidence of exercise-induced ischemia on ECG or SPECT imaging. Normal LV size with hyperdynamic function. Normal hemodynamic response to exercise. Good exercise capacity. Dictated by: Liat Noonan D.O. on 10/28/2023 at 17:07 Approved by: Liat Noonan D.O. on 10/28/2023 at 17:10
== END ==
LOC: NUCM 13:25
PROVIDERS: Family Provider Family Medicine; PCP Family Medicine; Referring Provider Family Medicine; Visit Provider Family Medicine
DX: R06.02 Shortness of breath (principal); R06.09 Other forms of dyspnea; E78.5 Hyperlipidemia, unspecified; R00.2 Palpitations
CPT/HCPCS: 78452; 93017; A9502

== ENCOUNTER → 2023-10-28 | Outpatient (CLI) | payer MEDICARE, OTHER, SELFPAY | PROVIDERS: Family Provider Family Medicine; PCP Family Medicine; Referring Provider Family Medicine; Visit Provider Family Medicine ==

== ENCOUNTER 2023-12-21 16:05 | Emergency (ER) | payer MEDICARE, OTHER, SELFPAY ==
[2023-12-21 16:08] VITALS: BP 189/84; PULSE 77; RESP 18; TEMP 36.6; O2SAT 97; BMI 35.8
--- NOTE | 2023-12-21 16:14 | DI.RAD.S_ITS ---
PROCEDURE: XR FOREARM RT 2V INDICATIONS: fall/pain/swelling TECHNIQUE: 2 views of the forearm were acquired. COMPARISON: None. FINDINGS: Bones: No fractures or dislocations. No suspicious bony lesions. Soft tissues: Generalized soft tissue swelling is seen. IMPRESSION: Soft tissue swelling is seen, without an acute bony abnormality seen by plain film. If there is point tenderness (or other clinical suspicion for a fracture not seen on these images) then a dedicated CT or a short-term followup plain film series could be considered for further evaluation, as clinically appropriate. Dictated by: Giovanni Franco M.D. on 12/21/2023 at 15:45 Approved by: Giovanni Franco M.D. on 12/21/2023 at 15:46
--- NOTE | 2023-12-21 16:16 | ED.UPPEXIN ---
HPI - Extremity Injury (Upper) <Juan Augustine PA-C - Last Filed: 12/21/23 16:53> General Chief Complaint: Extremity Injury, Upper Stated Complaint: R arm injuryed GLF Time Seen by Provider: 12/21/23 16:16 Source: patient Mode of arrival: Ambulatory History of Present Illness HPI narrative: This is a 73-year-old female presents emergency department due to a ground level fall where she tripped and fell over some bricks and landed on her right forearm. Complaining of primarily of right forearm pain. She states there is a small amount of bleeding. Denies any significant numbness in her right upper extremity and no other pain to the remainder of her body. She does report a small abrasion to her midthoracic spine although states that she fell primarily on her right arm. Did not hit her head. Not on blood thinners. Tetanus is not up-to-date. Related Data Home Medications Medication Instructions Recorded Confirmed CALCIUM/VITAMIN D (CALCIUM + D 1 tab PO ##0 07/25/11 11/19/23 500MG/125UNITS) MULTIVITAMIN (#MULTIPLE VITAMINS) 1 cap PO Q DAY ##0 07/25/11 11/19/23 meloxicam 15 mg tablet 15 mg PO 04/09/23 11/19/23 loratadine 10 mg tablet (Claritin) 10 mg PO DAILY 07/24/23 11/19/23 Previous Rx's Medication Instructions Recorded albuterol sulfate 90 mcg/actuation 2 puff inhalation Q4-6H PRN 12/05/21 aerosol inhaler shortness of breath #6.7 grams atorvastatin 10 mg tablet 10 mg PO DAILY #90 tabs 06/13/23 albuterol sulfate 90 mcg/actuation 2 puff inhalation Q4-6H PRN 07/15/23 aerosol inhaler shortness of breath or wheezing #6.7 grams fluticasone propionate 50 2 spray intranasal DAILY PRN for 07/24/23 mcg/actuation nasal congestion #48 grams spray,suspension citalopram 20 mg tablet 20 mg PO DAILY #90 tabs 10/01/23 losartan 100 mg tablet 100 mg PO DAILY #90 tabs 10/17/23 Allergies Allergy/AdvReac Type Severity Reaction Status Date / Time codeine [CODEINE] AdvReac Mild UPSET Verified 11/19/23 14:29 STOMACH,DIZZY Review of Systems <Juan Augustine PA-C - Last Filed: 12/21/23 16:53> Review of Systems Narrative: GENERAL: Denies chills, fatigue, malaise, fever, sweats. HEENT: Denies sinus pain, ear pain, sore throat, difficulty swallowing, dizziness. RESPIRATORY: Denies dyspnea, cough, wheezing, hemoptysis, sputum. CARDIOVASCULAR: Denies chest pain, palpitations, orthopnea, edema, GASTROINTESTINAL: Denies nausea, vomiting, abdominal pain, diarrhea, constipation, melena. : Denies dysuria, frequency, incontinence, hematuria, urinary retention. MUSCULOSKELETAL: Reports right arm pain, denies weakness, joint pain, or bony pain SKIN: Denies rash, skin lesions, or other NEUROLOGIC: Denies weakness, headache, numbness, change in speech, confusion, seizures, incoordination. PSYCHIATRIC: No concerning psychosocial issues. 12 point review of systems is negative except for those stated above Patient History <Juan Augustine PA-C - Last Filed: 12/21/23 16:53> Medical History (Updated 12/21/23 @ 16:31 by Juan Augustine PA-C) Second hand smoke exposure Allergies Asthma Hypercalcemia TMJ (temporomandibular joint disorder) Surgical History History of carpal tunnel repair (05/30/16) Social History Smoking Status: Never smoker Smoking Status: Never smoker alcohol intake frequency: 3 or more drinks per day Substance Use Type: does not use Exam <Juan Augustine PA-C - Last Filed: 12/21/23 16:53> Narrative Exam Narrative: GENERAL: Well-developed patient, in mild distress. HEAD: Atraumatic. Normocephalic. EYES: Pupils equal round and reactive. Extraocular motions intact. No scleral icterus. No injection or drainage. ENT: Nose without bleeding, purulent drainage. Throat without erythema, tonsillar hypertrophy or exudate. Airway patent. NECK: Trachea midline. Non tender EXTREMITIES: Some tenderness to palpation with mild edema and superficial skin abrasions to the right forearm. No palpable crepitus. Neurovascularly intact throughout the extremity. NEURO: AOx3. SKIN: Very superficial skin tear to the midthoracic spine. Initial Vital Signs Initial Vital Signs: Vital Signs Temperature 98 F 12/21/23 16:08 Pulse Rate 77 12/21/23 16:08 Respiratory Rate 18 12/21/23 16:08 Blood Pressure 189/84 H 12/21/23 16:08 Pulse Oximetry 97 12/21/23 16:08 Oxygen Delivery Method Room Air 12/21/23 16:08 <Luca Skinner DO - Last Filed: 12/21/23 17:40> Initial Vital Signs Initial Vital Signs: Vital Signs Temperature 98 F 12/21/23 16:08 Pulse Rate 77 12/21/23 16:08 Respiratory Rate 18 12/21/23 16:08 Blood Pressure 189/84 H 12/21/23 16:08 Pulse Oximetry 97 12/21/23 16:08 Oxygen Delivery Method Room Air 12/21/23 16:08 Course <Juan Augustine PA-C - Last Filed: 12/21/23 16:53> Orders Ordered: ED Orders 12/21/23 16:14 XR forearm RT 2V Stat Discontinued Medications Acetaminophen (Acetaminophen 325 Mg Tablet) 650 mg PO NOW ONE Stop: 12/21/23 16:25 Last Admin: 12/21/23 16:35 Dose: 650 mg Documented By: MACARENA Diphtheria/Tetanus/Acell Pertussis (Tet,Diph,Pertuss(Acell),Vac/Pf 0.5 Ml Syringe) 0.5 ml IM .ONCE ONE Stop: 12/21/23 16:28 Last Admin: 12/21/23 16:35 Dose: 0.5 ml Documented By: MACARENA Vital Signs Vital signs: Vital Signs - 8 hr 12/21/23 16:08 Temperature 98 F Pulse Rate 77 Respiratory Rate 18 Blood Pressure 189/84 H Pulse Oximetry 97 Oxygen Delivery Method Room Air <DO Marta Campoverde Last Filed: 12/21/23 17:40> Orders Ordered: ED Orders 12/21/23 16:14 XR forearm RT 2V Stat Discontinued Medications Acetaminophen (Acetaminophen 325 Mg Tablet) 650 mg PO NOW ONE Stop: 12/21/23 16:25 Last Admin: 12/21/23 16:35 Dose: 650 mg Documented By: MACARENA Diphtheria/Tetanus/Acell Pertussis (Tet,Diph,Pertuss(Acell),Vac/Pf 0.5 Ml Syringe) 0.5 ml IM .ONCE ONE Stop: 12/21/23 16:28 Last Admin: 12/21/23 16:35 Dose: 0.5 ml Documented By: MACARENA Vital Signs Vital signs: Vital Signs - 8 hr 12/21/23 16:08 Temperature 98 F Pulse Rate 77 Respiratory Rate 18 Blood Pressure 189/84 H Pulse Oximetry 97 Oxygen Delivery Method Room Air MDM - Extremity Injury (Upper) <Juan Augustine PA-C - Last Filed: 12/21/23 16:53> Imaging Data Extremity x-ray #1: Radiologist's Impression: [address] [address] XRay Report Signed Patient: Barbara Silverman MR#: [id number] : 1950 Acct:[id number] Age/Sex: 73 / F Date of Service: 12/21/23 Loc: ED Accession Number: [id number] Procedure: XR forearm RT 2V Ordering Provider: Luca Skinner D.O. PROCEDURE: XR FOREARM RT 2V INDICATIONS: fall/pain/swelling TECHNIQUE: 2 views of the forearm were acquired. COMPARISON: None. FINDINGS: Bones: No fractures or dislocations. No suspicious bony lesions. Soft tissues: Generalized soft tissue swelling is seen. IMPRESSION: Soft tissue swelling is seen, without an acute bony abnormality seen by plain film. If there is point tenderness (or other clinical suspicion for a fracture not seen on these images) then a dedicated CT or a short-term followup plain film series could be considered for further evaluation, as clinically appropriate. Dictated by: Giovanni Franco M.D. on 12/21/2023 at 15:45 Approved by: Giovanni Franco M.D. on 12/21/2023 at 15:46 [facility] Narrative Medical decision making narrative: ED course: This is a 73-year-old female presents to the emergency department due to a ground level fall where she landed primarily on her right forearm. There was no pain with palpation of the wrist or elbow and no pain with range of motion. She was neurovascularly intact throughout. X-ray of the right forearm was negative for any fractures. Recommended supportive care. Superficial abrasions that were bandaged and tetanus was updated. No significant tenderness to palpation of the midline spine and very low concern for any kind of thoracic spine fracture. CC: Right forearm pain Complicating co-morbidities: None Data collected from: Previous notes Medical records reviewed: Patient was seen here roughly a year ago due to a knee sprain. History of hyperlipidemia. Nonsmoker. History of carpal tunnel repair surgery 8 years ago. Differential considered, but not limited to: Fracture, hematoma, soft tissue injury Exam documented above, pertinent findings include: Some tenderness to palpation to the right forearm. No tenderness to palpation to the right wrist or elbow. Lab Test results independently reviewed as above. Pertinent findings: None obtained Imaging studies independently reviewed: Right forearm x-ray negative for fractures Scores Used: None MIPS Elements: None Consultations: None Treatments: Bandage and Tdap Re-evaluations: None Discussion: Discussed plan with the patient was comfortable with the plan Diagnosis: Right forearm injury Disposition: see below, along with detailed discharge instructions that have been reviewed with patient as well as indications for ED re-evaluation and additional outpatient follow up Discharge Plan Departure Patient Disposition: Home Clinical Impression: Forearm injury Activity Restrictions/Additional Instructions: Thank you for coming to the [facility] Emergency Department today. As we discussed your forearm x-ray was negative for fractures. I am glad that we are able to update tetanus. Please keep an eye on the wound to ensure that there was no evidence of infection such as spreading redness or purulent drainage. Please return to the emergency department if you develop any fevers, significant pain, numbness, or any other concerning signs or symptoms. I hope you feel better soon. Please follow up with your primary care provider within a week if your symptoms continue. If you do not have a primary care provider please contact the [facility] Resource line at [phone]. They will ask some questions about your medical history and help you get set up with a provider in the community. Prescriptions: No Action albuterol sulfate 90 mcg/actuation HFA aerosol inhaler 2 puff inhalation Q4-6H PRN (Reason: shortness of breath or wheezing) Qty: 6.7 0RF MULTIVITAMIN (#MULTIPLE VITAMINS) 1 cap PO Q DAY Qty: 0 CALCIUM/VITAMIN D (CALCIUM + D 500MG/125UNITS) 1 tab PO Qty: 0 atorvastatin 10 mg tablet 10 mg PO DAILY Qty: 90 3RF fluticasone propionate 50 mcg/actuation spray,suspension 2 spray intranasal DAILY PRN (Reason: for congestion) Qty: 48 3RF citalopram 20 mg tablet 20 mg PO DAILY Qty: 90 3RF losartan 100 mg tablet 100 mg PO DAILY Qty: 90 3RF albuterol sulfate 90 mcg/actuation HFA aerosol inhaler 2 puff INHALATION Q4-6H PRN (Reason: shortness of breath) Qty: 6.7 5RF loratadine [Claritin] 10 mg tablet 10 mg PO DAILY meloxicam 15 mg tablet 15 mg PO Hold Instructions: while taking prednisone Referrals: Rm Rivera MD [Primary Care Provider] - Stand Alone Forms: Patient Portal/API ED Sign-out <Luca Skinner, - Last Filed: 12/21/23 17:40> Cosign ED Attending Cosignature Attestation: Dr Skinner Co-Sign Statement: I was available for consultation during this patient's emergency department visit. This chart is signed by myself for administrative purposes only. I did not have direct contact with this patient during this visit. They were seen independently by the APC.
[2023-12-21] MEDS: TET,DIPH,PERTUSS(ACELL),VAC/PF 0.5 ML SYRINGE IM (16:35)
[2023-12-21] MEDS: ACETAMINOPHEN 325 MG TABLET 650 MG PO (16:35)
== END 2023-12-21 17:06 | disposition home or self-care (01) ==
PROVIDERS: Emergency Provider Physician Assistant Medical; Family Provider Family Medicine; PCP Family Medicine
DX: S59.911A Unspecified injury of right forearm, initial encounter (principal); W01.0XXA Fall on same level from slipping, tripping and stumbling without subsequent striking against object, initial encounter; Z23 Encounter for immunization
CPT/HCPCS: 73090; 90471; 99283; 99284; 90715

== ENCOUNTER → 2024-06-16 09:54 | Outpatient (CLI) | payer MEDICARE, OTHER, SELFPAY ==
[2024-06-16 11:50] LABS: Add Manual Diff / Slide Review NO; Basophils Absolute Auto 0 /uL (0-100); Basophils Percent Auto 0.6 % (0-2); Eosinophils Absolute Auto 300 /uL (0-450); Eosinophils Percent Auto 4.7 % (2-4); Hematocrit 35.5 % (36-46); Hemoglobin 12.1 g/dL (12.0-16.0); Lymphocytes Absolute Auto 2400 /uL (1100-4500); Lymphocytes Percent Auto 35.8 % (25-40); Mean Corpuscular HGB Conc 34.2 % (30-36); Mean Corpuscular Hemoglobin 33.3 PG (26-34); Mean Corpuscular Volume 97.5 fL (80-100); Monocytes Absolute Auto 500 /uL (0-900); Monocytes Percent Auto 7.2 % (3-14); Neutrophils Absolute Auto 3500 /uL (1500-7000); Neutrophils Percent Auto 51.7 % (50-75); Platelet Count 214 X10^3/uL (150-400); Red Blood Cell Count 3.64 X10^6/uL (4.0-5.2); Red Cell Distribution Width 13.3 % (11.6-14.8); White Blood Cell Count 6.7 X10^3/uL (4.5-11.0)
[2024-06-16 12:22] LABS: Alanine Aminotransferase 22 IU/L (<35); Albumin 4.2 g/dL (3.5-5.0); Albumin Globulin Ratio 1.5 (1.0-2.8); Alkaline Phosphatase 60 U/L (38-126); Aspartate Aminotransferase 25 IU/L (14-36); Bilirubin Total 0.7 mg/dL (0.2-1.3); Blood Urea Nitrogen 35 mg/dL (7-17); Calcium 9.6 mg/dL (8.4-10.2); Carbon Dioxide 26 mmol/L (22-32); Chloride 102 mmol/L (98-107); Cholesterol 187 mg/dL (140-199); Estimated Glomerular Filt Rate 55 mL/min (>60); Globulin 2.8 g/dL (1.7-4.1); Glucose 95 mg/dL (80-110); HDL Cholesterol 74 mg/dL (40-60); HEMOLYSIS < 15 (0-50); LDL Cholesterol Calculated 80 mg/dL (<100); Potassium 5.1 mmol/L (3.4-5.1); Sodium 135 mmol/L (137-145); Triglycerides 164 mg/dL (35-150)
[2024-06-16 12:52] LABS: TSH w/ Reflex to FT4 2.36 uIU/mL (0.47-4.68)
[2024-06-16 13:15] LABS: Hep C Virus Ab w/Reflex Quant NEGATIVE s/c (NEGATIVE)
[2024-06-16 13:18] LABS: Microalbumin Urine Random < 0.6 mg/dL (0-1.6)
== END ==
PROVIDERS: Family Provider Family Medicine; PCP Family Medicine; Referring Provider Family Medicine; Visit Provider Family Medicine
DX: E78.5 Hyperlipidemia, unspecified (principal); I10 Essential (primary) hypertension; E83.52 Hypercalcemia; M25.579 Pain in unspecified ankle and joints of unspecified foot; Z87.39 Personal history of other diseases of the musculoskeletal system and connective tissue
CPT/HCPCS: 36415; 80053; 80061; 82043; 82570; 84443; 85025; 86803

== ENCOUNTER 2024-08-24 17:21 | Emergency (ER) | payer MEDICARE, OTHER, SELFPAY ==
[2024-08-24 17:33] VITALS: BP 174/81; PULSE 72; RESP 18; TEMP 36.5; O2SAT 96; BMI 35.4
--- NOTE | 2024-08-24 17:51 | EKG_ITS ---
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
[2024-08-24 18:02] LABS: Add Manual Diff / Slide Review NO; Basophils Absolute Auto 0 /uL (0-100); Basophils Percent Auto 0.4 % (0-2); Eosinophils Absolute Auto 300 /uL (0-450); Eosinophils Percent Auto 3.1 % (2-4); Hemoglobin 11.6 g/dL (12.0-16.0); Lymphocytes Absolute Auto 2700 /uL (1100-4500); Lymphocytes Percent Auto 31.2 % (25-40); Mean Corpuscular HGB Conc 34.1 % (30-36); Mean Corpuscular Volume 96.6 fL (80-100); Monocytes Absolute Auto 600 /uL (0-900); Monocytes Percent Auto 7.4 % (3-14); Neutrophils Absolute Auto 5100 /uL (1500-7000); Neutrophils Percent Auto 57.9 % (50-75); Platelet Count 212 X10^3/uL (150-400); Red Blood Cell Count 3.51 X10^6/uL (4.0-5.2); Red Cell Distribution Width 13.2 % (11.6-14.8); White Blood Cell Count 8.8 X10^3/uL (4.5-11.0)
[2024-08-24 18:08] LABS: Prothrombin Time 10.8 SECONDS (9.4-12.5)
[2024-08-24 18:11] LABS: PTT Partial Thromboplastin Tim 33 SECONDS (25.1-36.5)
[2024-08-24 18:12] LABS: Alanine Aminotransferase 24 IU/L (<35); Albumin 4.2 g/dL (3.5-5.0); Albumin Globulin Ratio 1.4 (1.0-2.8); Alkaline Phosphatase 55 U/L (38-126); Aspartate Aminotransferase 30 IU/L (14-36); BUN Creatinine Ratio 28.6 (6-22); Bilirubin Total 0.6 mg/dL (0.2-1.3); Blood Urea Nitrogen 28 mg/dL (7-17); Calcium 9.5 mg/dL (8.4-10.2); Carbon Dioxide 22 mmol/L (22-32); Chloride 106 mmol/L (98-107); Estimated Glomerular Filt Rate 60 mL/min (>60); Globulin 2.9 g/dL (1.7-4.1); Glucose 83 mg/dL (80-110); HEMOLYSIS 21 (0-50); Potassium 4.1 mmol/L (3.4-5.1); Sodium 135 mmol/L (137-145); Total Protein 7.1 g/dL (6.3-8.2)
[2024-08-24] MEDS: PANTOPRAZOLE 40 MG VIAL 80 MG IV (19:02)
--- NOTE | 2024-08-24 20:01 | ED_ITS ---
HPI - GI Bleed General Chief complaint: GI Bleed Stated complaint: Black-Colored Diarrhea Time Seen by Provider: 08/24/24 20:01 History of Present Illness HPI Narrative: patient is a 74-year-old female with a history of hypertension, hyperlipidemia, presents to the emergency department from home for evaluation of dark colored stool with diarrhea ongoing and persistent for the past week. she has not on any blood thinners, she states that she has been having diarrhea for the past week has been able to tolerate p.o. liquids solids, has been pushing electrolytes and fluids. States that she has not had any recent antibiotic use. He also states that today she had her 1st episode of dark stool, she states that she did take Pepto-Bismol for the 1st time today to help with her symptoms. She denies any actual abdominal cramping, no nausea no vomiting no trauma no falls. Related Data Home Medications Medication Instructions Recorded Confirmed CALCIUM/VITAMIN D (CALCIUM + D 1 tab PO ##0 07/25/11 07/28/24 500MG/125UNITS) MULTIVITAMIN (#MULTIPLE VITAMINS) 1 cap PO Q DAY ##0 07/25/11 07/28/24 meloxicam 15 mg tablet 15 mg PO 04/09/23 07/28/24 loratadine 10 mg tablet (Claritin) 10 mg PO DAILY 07/24/23 07/28/24 Previous Rx's Medication Instructions Recorded albuterol sulfate 90 mcg/actuation 2 puff inhalation Q4-6H PRN 07/15/23 aerosol inhaler shortness of breath or wheezing #6.7 grams fluticasone propionate 50 2 spray intranasal DAILY PRN for 07/24/23 mcg/actuation nasal congestion #48 grams spray,suspension citalopram 20 mg tablet 20 mg PO DAILY #90 tabs 10/01/23 atorvastatin 10 mg tablet 10 mg PO DAILY #90 tabs 03/30/24 losartan 100 1 tab PO DAILY #90 tabs 07/28/24 mg-hydrochlorothiazide 12.5 mg tablet Allergies Allergy/AdvReac Type Severity Reaction Status Date / Time codeine [CODEINE] AdvReac Mild UPSET Verified 07/28/24 13:54 STOMACH,DIZZY Review of Systems Review of Systems Narrative: General: Denies fever, chills, weight loss HEENT: Denies headache, eye drainage, eye irritation, head trauma, sore throat, voice change Cardiovascular: Denies any chest pain, palpitations, shortness of breath, tachycardia Respiratory: Denies any shortness of breath, cough, wheeze, stridor GI/: positive diarrhea, dark stool Denies any abdominal pain, nausea, vomiting, urinary frequency, urinary retention, dysuria, hematuria MSK: Denies any joint pain, muscle pains, swelling Skin: Denies any rashes, lesions, discoloration Neuro: Denies any headache, lightheadedness, dizziness, fainting, weakness Psych: Denies SI/HI Patient History Medical History (Updated 08/24/24 @ 20:16 by Antwan Galvin DO) Second hand smoke exposure Allergies Asthma Hypercalcemia TMJ (temporomandibular joint disorder) Surgical History History of carpal tunnel repair (05/30/16) Social History Smoking Status: Never smoker Smoking Status: Never smoker alcohol intake frequency: 3 or more drinks per day Alcohol type: hard liquor Substance Use Type: does not use Exam Narrative Exam Narrative: General: Cooperative, comfortable, well-developed, not in acute distress HEENT: Normocephalic, atraumatic, PERRLA, normal sclera, eyelids normal, Neck: Active full range of motion, atraumatic Chest: Normal to inspection, negative crepitus, no overlying erythema ecchymosis Respiratory: Normal respiratory effort, not in acute respiratory distress, clear to auscultation bilaterally negative cough, wheeze, tachypnea, rhonchi, rales Cardiology: Regular rate rhythm negative gallop, murmur, rubs GI/: Normal to inspection, soft, nonrigid, no tenderness to palpation, 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: (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) no internal or external hemorrhoids noted, no bright red blood per rectum, Hemoccult negative, MSK: Full range of active range of motion of all 4 extremities, atraumatic Skin: No rashes lesions noted Neuro: Alert awake oriented x3, moves all 4 extremities spontaneously, cranial nerves intact, able to answer all questions appropriately follows commands appropriately Psych: Cooperative, negative suicidal or homicidal ideations Initial Vital Signs Initial Vital Signs: Vital Signs Temperature 97.7 F 08/24/24 17:33 Pulse Rate 72 08/24/24 17:33 Respiratory Rate 18 08/24/24 17:33 Blood Pressure 174/81 H 08/24/24 17:33 Pulse Oximetry 96 08/24/24 17:33 Oxygen Delivery Method Room Air 08/24/24 17:33 Course Orders Ordered: ED Orders 08/24/24 17:40 EKG-12 Lead Stat 08/24/24 17:45 Complete Blood Count AUTO DIFF Stat Comprehensive Metabolic Panel Stat PTT Partial Thromboplastin Bishop Stat Prothrombin Time INR Stat Type and Screen Stat Ondansetron HCl (Ondansetron 4 Mg/2 Ml Inj) 4 mg IV NOW PRN PRN Reason: Nausea And Vomiting Ondansetron HCl (Ondansetron 4 Mg Odt) 4 mg SL NOW PRN PRN Reason: Nausea And Vomiting Discontinued Medications Pantoprazole Sodium (Pantoprazole 40 Mg Vial) 80 mg IV NOW ONE Stop: 08/24/24 17:40 Last Admin: 08/24/24 19:02 Dose: 80 mg Documented By: JULIAN Vital Signs Vital signs: Vital Signs - 8 hr 08/24/24 17:33 Temperature 97.7 F Pulse Rate 72 Respiratory Rate 18 Blood Pressure 174/81 H Pulse Oximetry 96 Oxygen Delivery Method Room Air MDM - GI Bleed Differential Diagnosis Differential diagnosis: Likely hemorrhoids, Lower gastrointestinal hemorrhage, melena and other Lab Data 08/24/24 17:45 08/24/24 17:45 Labs: Lab Results 08/24/24 Range/Units 17:45 WBC 8.8 (4.5-11.0) X10^3/uL RBC 3.51 L (4.0-5.2) X10^6/uL Hgb 11.6 L (12.0-16.0) g/dL Hct 34.0 L (36-46) % MCV 96.6 (80-100) fL MCH 33.0 (26-34) PG MCHC 34.1 (30-36) % RDW 13.2 (11.6-14.8) % Plt Count 212 (150-400) X10^3/uL Neut % (Auto) 57.9 (50-75) % Lymph % (Auto) 31.2 (25-40) % [place] % (Auto) 7.4 (3-14) % Eos % (Auto) 3.1 (2-4) % Baso % (Auto) 0.4 (0-2) % Neut # (Auto) 5100 (0786-3866) /uL Lymph # (Auto) 2700 (6492-6628) /uL [place] # (Auto) 600 (0-900) /uL Eos # (Auto) 300 (0-450) /uL Baso # (Auto) 0 (0-100) /uL PT 10.8 (9.4-12.5) SECONDS INR 1.0 (0.9-1.3) APTT 33 (25.1-36.5) SECONDS Sodium 135 L (137-145) mmol/L Potassium 4.1 (3.4-5.1) mmol/L Chloride 106 (98-107) mmol/L Carbon Dioxide 22 (22-32) mmol/L BUN 28 H (7-17) mg/dL Creatinine 0.98 (0.52-1.04) mg/dL Estimated GFR 60 (>60) mL/min BUN/Creatinine Ratio 28.6 H (6-22) Glucose 83 (80-110) mg/dL Calcium 9.5 (8.4-10.2) mg/dL Total Bilirubin 0.6 (0.2-1.3) mg/dL AST 30 (14-36) IU/L ALT 24 (<35) IU/L Alkaline Phosphatase 55 (38-126) U/L Total Protein 7.1 (6.3-8.2) g/dL Albumin 4.2 (3.5-5.0) g/dL Globulin 2.9 (1.7-4.1) g/dL Albumin/Globulin Ratio 1.4 (1.0-2.8) Blood Type A Positive Antibody Screen Positive Antibody Identification Miscellaneous Ana ECG Data Interpretation: EKG interpreted ED physician sinuses 67 beats per minute, QTC 414, normal axis, nonspecific ST changes, no STEMI MDM Narrative Medical decision making narrative: Patient is a 74-year-old female hypertension hyperlipidemia past medical history presents for persistent diarrhea and episode of dark stool. She states that this just started today, but also states that she did take Pepto-Bismol to starting today. Patient not anemic, lab work otherwise unremarkable. Hemoccult negative, patient is not on any recent or current antibiotic. Patient will be sent home with strict return precautions, I informed patient that Pepto-Bismol can cause dark discoloration of the stool, she understands and agrees to being discharged home with outpatient follow up Discharge Plan Departure Patient Disposition: Home Clinical Impression: Diarrhea Activity Restrictions/Additional Instructions: Please read the discharge instructions sheet carefully and bring all papers to all doctor follow-up visits, as it may contain information that your doctor may want to see. Disease processes change and evolve, if your symptoms worsen or if you develop any new symptoms that are concerning to you please return for evaluation. Your evaluation today does not show any evidence of any life- threatening/serious illnesses requiring admission to the hospital or surgery. Please follow-up with your doctor for re-evaluation in approximately 1 day. Seek immediate medical attention for any worrisome symptoms. Prescriptions: No Action albuterol sulfate 90 mcg/actuation HFA aerosol inhaler 2 puff inhalation Q4-6H PRN (Reason: shortness of breath or wheezing) Qty: 6.7 0RF MULTIVITAMIN (#MULTIPLE VITAMINS) 1 cap PO Q DAY Qty: 0 CALCIUM/VITAMIN D (CALCIUM + D 500MG/125UNITS) 1 tab PO Qty: 0 fluticasone propionate 50 mcg/actuation spray,suspension 2 spray intranasal DAILY PRN (Reason: for congestion) Qty: 48 3RF citalopram 20 mg tablet 20 mg PO DAILY Qty: 90 3RF atorvastatin 10 mg tablet 10 mg PO DAILY Qty: 90 3RF loratadine [Claritin] 10 mg tablet 10 mg PO DAILY losartan-hydrochlorothiazide 100-12.5 mg tablet 1 tab PO DAILY Qty: 90 3RF meloxicam 15 mg tablet 15 mg PO Hold Instructions: while taking prednisone Referrals: Rm Rivera MD [Primary Care Provider] - Stand Alone Forms: Patient Portal/API/Survey
[2024-08-24 20:41] VITALS: BP 149/80; PULSE 68; RESP 18; O2SAT 99
== END 2024-08-24 20:30 | disposition home or self-care (01) ==
PROVIDERS: Emergency Medicine; Emergency Provider Student in an Organized Health Care Education/Training Program; Family Provider Family Medicine; PCP Family Medicine
DX: R19.7 Diarrhea, unspecified (principal)
CPT/HCPCS: 36415; 80053; 85025; 85610; 85730; 86850; 86870; 86900; 86901; 93005; 93010; 96374; 99284; J2470

== ENCOUNTER → 2024-09-05 09:15 | Outpatient (CLI) | payer MEDICARE, OTHER, SELFPAY ==
[2024-09-05 14:54] LABS: Clostridium Difficile Tox PCR Negative for C. diff (Negative)
== END ==
PROVIDERS: Family Provider Family Medicine; PCP Family Medicine; Referring Provider Physician Assistant; Visit Provider Physician Assistant
DX: R19.7 Diarrhea, unspecified (principal)
CPT/HCPCS: 83993; 87493

== ENCOUNTER → 2024-10-08 14:45 | Outpatient (CLI) | payer MEDICARE, OTHER, SELFPAY | PROVIDERS: Family Provider Family Medicine; PCP Family Medicine; Visit Provider Physician Assistant Medical | DX: R35.0 Frequency of micturition (principal) | CPT/HCPCS: 87077; 87086 ==

== ENCOUNTER → 2024-11-10 12:04 | Outpatient (CLI) | payer MEDICARE, OTHER, SELFPAY ==
--- NOTE | 2024-11-10 12:06 | DI.CT.S_ITS ---
PROCEDURE: CT KIDNEY URETER BLADDER (KUB) INDICATIONS: PERSISTENT LOWER ABD PAIN TECHNIQUE: Axial sections were acquired from the lung bases to the pubic symphysis. Coronal and sagittal reformats were performed. For radiation dose reduction, the following was used: automated exposure control, adjustment of mA and/or kV according to patient size. COMPARISON: None. FINDINGS: Image quality: Diagnostic. Lower Chest: No significant findings. URINARY: Right Kidney: No stones or hydronephrosis. Right Ureter: No hydroureter. Left Kidney: No stones or hydronephrosis. Left Ureter: No hydroureter. Bladder: Normal wall thickness. No stones. ABDOMEN: Liver: No contour-deforming solid mass. Gallbladder: Small calcified gallstone. No gallbladder distention or gallbladder wall thickening. Biliary ducts: No biliary dilation. Pancreas: No ductal dilation. Spleen: Size is within normal limits. Adrenal Glands: No adrenal nodules. Stomach and Bowel: Normal colonic caliber, without significant wall thickening. Normal appendix. Peritoneum: No abnormal intraperitoneal fluid. No free air. Ventral Wall: No hernia. Abdominal Nodes: No enlarged retroperitoneal or mesenteric lymph nodes. Vessels: Aorta and inferior vena cava are normal in size. PELVIS: Pelvic Organs: 2.8 x 1.9 cm cystic lesion of the left ovary. Pelvic Nodes: Unremarkable. Miscellaneous: No inguinal hernias are seen. Bones: No suspicious lesions. No compression fractures. Mild degenerative change. IMPRESSION: 1. No renal stone, ureteral stone, or hydronephrosis. 2. Cholelithiasis. 3. No acute abdominal process. 4. 2.8 cm maximum diameter left ovarian cyst. Based on current recommendations, no further routine scheduled follow-up is recommended for cystic adnexal lesions that are less than 3.0 cm in postmenopausal females. Dictated by: Castro Sanchez M.D. on 11/10/2024 at 14:34 Approved by: Castro Sanchez M.D. on 11/10/2024 at 14:39
== END ==
PROVIDERS: Family Provider Family Medicine; PCP Family Medicine; Referring Provider Family Medicine; Visit Provider Family Medicine
DX: N18.30 Chronic kidney disease, stage 3 unspecified (principal); R30.0 Dysuria; R10.9 Unspecified abdominal pain; K80.20 Calculus of gallbladder without cholecystitis without obstruction; N83.202 Unspecified ovarian cyst, left side
CPT/HCPCS: 74176

== ENCOUNTER → 2024-12-02 10:34 | Outpatient (CLI) | payer MEDICARE, OTHER, SELFPAY ==
--- NOTE | 2024-12-02 10:37 | DI.US.S_ITS ---
PROCEDURE: US PELVIC COMPLETE INDICATIONS: LEFT OVARIAN CYST ON CT KUB 11/10/2024 TECHNIQUE: Real-time scanning was performed of the pelvic organs, with image documentation. Additional endovaginal scanning was necessary due to incomplete visualization of the adnexal and endometrial structures by transabdominal scanning. COMPARISON: [facility], CT, CT KIDNEY URETER BLADDER (KUB), 11/10/2024, 12:09. FINDINGS: Uterus: Uterus is anteverted and normal in size at 7.7 x 4.1 x 2.9 cm. The myometrium is homogeneous. The endometrium measures 4.2 mm combined thickness. Fluid is seen in the endocervical canal Ovaries: Right ovary is not visualized. Cyst is seen occupying the majority of the left ovary measuring 3.8 x 1.8 x 2.0 cm. There is relatively scant surrounding ovarian tissue. However, the ovary is not well visualized due to overlying bowel and patient discomfort. Other: No pathologic free abdominal or pelvic fluid. IMPRESSION: 1. Left ovarian 3.8 cm cyst occupying the majority of the ovary. Recommend 12 month ultrasound follow-up. 2. Small volume of nonspecific fluid in the endometrial and endocervical canals. Approved by: El Landaverde M.D. on 12/02/2024 at 20:25
== END ==
PROVIDERS: Family Provider Family Medicine; PCP Family Medicine; Referring Provider Obstetrics & Gynecology; Visit Provider Obstetrics & Gynecology
DX: N83.202 Unspecified ovarian cyst, left side (principal); R10.2 Pelvic and perineal pain
CPT/HCPCS: 76830; 76856

== ENCOUNTER → 2024-12-09 12:00 | Outpatient (CLI) | payer MEDICARE, OTHER, SELFPAY ==
[2024-12-09 13:08] LABS: Cancer Antigen 125 7.6 U/mL (0-35)
== END ==
LOC: LAB 12:01
PROVIDERS: Family Provider Family Medicine; PCP Family Medicine; Referring Provider Obstetrics & Gynecology; Visit Provider Obstetrics & Gynecology
DX: N83.202 Unspecified ovarian cyst, left side (principal); Z78.0 Asymptomatic menopausal state
CPT/HCPCS: 36415; 86304

== ENCOUNTER → 2025-02-09 09:26 | Outpatient (CLI) | payer MEDICARE, OTHER, SELFPAY ==
[2025-02-09 10:36] LABS: Add Manual Diff / Slide Review NO; Basophils Absolute Auto 0 /uL (0-100); Basophils Percent Auto 0.7 % (0-2); Eosinophils Absolute Auto 300 /uL (0-450); Eosinophils Percent Auto 5.3 % (2-4); Hemoglobin 11.2 g/dL (12.0-16.0); Lymphocytes Absolute Auto 2300 /uL (1100-4500); Lymphocytes Percent Auto 36.3 % (25-40); Mean Corpuscular Hemoglobin 33.3 PG (26-34); Mean Corpuscular Volume 95.3 fL (80-100); Monocytes Absolute Auto 400 /uL (0-900); Monocytes Percent Auto 6.9 % (3-14); Neutrophils Absolute Auto 3300 /uL (1500-7000); Neutrophils Percent Auto 50.8 % (50-75); Platelet Count 191 X10^3/uL (150-400); Red Blood Cell Count 3.35 X10^6/uL (4.0-5.2); Red Cell Distribution Width 13.6 % (11.6-14.8); White Blood Cell Count 6.4 X10^3/uL (4.5-11.0)
[2025-02-09 11:14] LABS: Alanine Aminotransferase 24 IU/L (<35); Albumin 4.3 g/dL (3.5-5.0); Alkaline Phosphatase 58 U/L (38-126); Aspartate Aminotransferase 27 IU/L (14-36); BUN Creatinine Ratio 32.1 (6-22); Bilirubin Total 0.6 mg/dL (0.2-1.3); Blood Urea Nitrogen 42 mg/dL (7-17); Calcium 9.3 mg/dL (8.4-10.2); Carbon Dioxide 28 mmol/L (22-32); Chloride 104 mmol/L (98-107); Estimated Glomerular Filt Rate 42 mL/min (>60); Globulin 2.1 g/dL (1.7-4.1); Glucose 98 mg/dL (70-99); HEMOLYSIS < 15 (0-50); Potassium 5.1 mmol/L (3.4-5.1); Sodium 138 mmol/L (137-145); Total Protein 6.4 g/dL (6.3-8.2)
== END ==
PROVIDERS: Family Provider Family Medicine; PCP Family Medicine; Referring Provider Family Medicine; Visit Provider Family Medicine
DX: I10 Essential (primary) hypertension (principal); M25.371 Other instability, right ankle; M19.071 Primary osteoarthritis, right ankle and foot
CPT/HCPCS: 36415; 80053; 85025

== ENCOUNTER → 2025-02-23 10:29 | Outpatient (CLI) | payer MEDICARE, OTHER, SELFPAY ==
[2025-02-23 11:29] LABS: Alanine Aminotransferase 22 IU/L (<35); Albumin 4.3 g/dL (3.5-5.0); Albumin Globulin Ratio 1.9 (1.0-2.8); Alkaline Phosphatase 61 U/L (38-126); Aspartate Aminotransferase 26 IU/L (14-36); BUN Creatinine Ratio 32.8 (6-22); Bilirubin Total 0.6 mg/dL (0.2-1.3); Blood Urea Nitrogen 43 mg/dL (7-17); Calcium 9.4 mg/dL (8.4-10.2); Carbon Dioxide 27 mmol/L (22-32); Chloride 102 mmol/L (98-107); Estimated Glomerular Filt Rate 42 mL/min (>60); Globulin 2.3 g/dL (1.7-4.1); Glucose 104 mg/dL (70-99); HEMOLYSIS < 15 (0-50); Potassium 5.4 mmol/L (3.4-5.1); Sodium 136 mmol/L (137-145); Total Protein 6.6 g/dL (6.3-8.2)
[2025-02-23 11:42] LABS: Appearance Urine UA CLEAR; Bilirubin Urine UA NEGATIVE (NEGATIVE); Color Urine UA YELLOW; Glucose Urine UA NEGATIVE (Negative); Ketones Urine UA NEGATIVE (NEGATIVE); Leukocyte Esterase Urine UA NEGATIVE (NEGATIVE); Nitrite Urine UA NEGATIVE (Negative); Occult Blood Urine UA NEGATIVE (Negative); Protein Urine UA NEGATIVE (Negative); Specific Gravity Urine UA <=1.005 (1.000-1.035); Urobilinogen Urine UA 0.2 E.U./dL (0.2)
[2025-02-23 11:49] LABS: Urine Volume 10mL (spun)
[2025-02-23 11:51] LABS: Bacteria Urine None Seen; Culture Indicated Urine Cult Not Indicated; RBC Urine None Seen (0-5/HPF); Squamous Epithelial Cell Urine None Seen (0-5/HPF); WBC Urine None Seen (0-5/HPF)
== END ==
PROVIDERS: Family Provider Family Medicine; PCP Family Medicine; Referring Provider Family Medicine; Visit Provider Family Medicine
DX: N17.9 Acute kidney failure, unspecified (principal); R30.0 Dysuria
CPT/HCPCS: 36415; 80053; 81001

== ENCOUNTER → 2025-03-23 13:13 | Outpatient (CLI) | payer MEDICARE, OTHER, SELFPAY ==
[2025-03-23 13:57] LABS: Alanine Aminotransferase 22 IU/L (<35); Albumin 4.3 g/dL (3.5-5.0); Alkaline Phosphatase 57 U/L (38-126); Aspartate Aminotransferase 28 IU/L (14-36); BUN Creatinine Ratio 29.3 (6-22); Bilirubin Total 0.6 mg/dL (0.2-1.3); Blood Urea Nitrogen 39 mg/dL (7-17); Calcium 9.3 mg/dL (8.4-10.2); Carbon Dioxide 26 mmol/L (22-32); Chloride 104 mmol/L (98-107); Estimated Glomerular Filt Rate 41 mL/min (>60); Globulin 2.1 g/dL (1.7-4.1); Glucose 100 mg/dL (70-99); HEMOLYSIS < 15 (0-50); Potassium 5.1 mmol/L (3.4-5.1); Sodium 137 mmol/L (137-145); Total Protein 6.4 g/dL (6.3-8.2)
== END ==
PROVIDERS: Family Provider Family Medicine; PCP Family Medicine; Referring Provider Family Medicine; Visit Provider Family Medicine
DX: E87.5 Hyperkalemia (principal)
CPT/HCPCS: 36415; 80053